=== PATIENT | female | born 1990 | race Hispanic/Latino ===

== ENCOUNTER 2018-06-13 15:34 | Emergency (ER) | payer MEDICAID ==
[2018-06-13] MEDS ORDERED: KETOROLAC TROMETHAMINE 30MG/ML ONE (15:49)
[2018-06-13] MEDS ORDERED: PREDNISONE 20 MG TABLET ONE (15:49)
[2018-06-13 16:07] LABS: APPEARANCE,URINE SLIGHTLY CLOUDY (CLEAR); BILIRUBIN,URINE Negative (NEGATIVE); COLOR,URINE Yellow (YELLOW); GLUCOSE, URINE (UA) Negative (NEGATIVE); KETONES,URINE Negative (NEGATIVE); LEUKOCYTE ESTERASE ,URINE Trace (NEGATIVE); NITRATE,URINE Negative (NEGATIVE); OCCULT BLOOD,URINE Negative (NEGATIVE); PH,URINE 5.5 (5.0-8.0); PROTEIN,URINE Negative (NEGATIVE)
[2018-06-13 16:14] LABS: BACTERIA,URINE Few /HPF (None Seen); RBC,URINE 0-1 /HPF (0-1); SQUAMOUS EPITHELIAL CELL,UR Moderate /HPF (0-2)
== END 2018-06-13 16:40 | disposition home or self-care (01) ==
LOC: EDH 15:34
DX: M54.41 Lumbago with sciatica, right side (principal)
CPT/HCPCS: 81001; 81025; 96372; 99283; J1885